=== PATIENT | male | born 1965 | race Caucasian/White ===

== ENCOUNTER 2017-01-11 07:53 | Day surgery (SDC) | payer BC ==
[~2017-01-11 07:53] MED LIST: RINGERS SOLUTION,LACTATED 1,000 ML IV PRN
--- OUTSIDE RECORDS SUMMARY | 2017-01-11 07:57 | XMS REPORT | Continuity of Care Document ---
:1965 Author Organization [facility] ([facility]) Address [address] [place] [address] Phone [phone] Care Team Providers Name Role Phone Kervin Dueñas Primary Care Provider [phone] Source Comments This disclosure is being made pursuant to the Care Everywhere program, applicable federal and state laws, and may not contain all informaitonavailable regarding this patient.[facility] ([facility]) Active Allergies and Adverse Reactions Allergen Noted Date Severity Reactions Comments Hydrocodone-Acetaminophen 12/13/2011 Hallucinations Pseudoephedrine OTHER made him irritable Current Medications Prescription Sig. Disp. Refills Start Date End Date Status aspirin 81 mg tablet Take 81 mg by Active mouth daily. naproxen 500 mg tablet Take 500 mg by Active mouth as needed. SERTraline 100 mg Take 50 mg by 08/01/2016 Active tablet mouth at bedtime. levothyroxine 50 mcg Take 50 mcg by 07/29/2016 Active tablet mouth daily. levothyroxine 200 mcg Take 200 mcg by 07/29/2016 Active tablet mouth every morning before breakfast. buPROPion (WELLBUTRIN Take 300 mg by 08/01/2016 Active XL) 300 mg extended mouth daily. release tablet 24 hour finasteride 5 mg Take 1 tablet (5 90 tablet 3 09/07/2016 Active tablet mg total) by mouth daily. tamsulosin 0.4 mg Take 2 capsules 180 capsule 3 09/07/2016 Active capsule (0.8 mg total) by mouth daily. metFORMIN 500 mg Take 500 mg by Active tablet mouth 2 times daily with meals. Active Problems Problem Noted Date Erectile dysfunction 12/19/2012 Renal mass, left 12/19/2012 BPH (benign prostatic hypertrophy) with urinary obstruction 12/19/2012 Other acute sinusitis 10/29/2007 Special screening for malignant neoplasm of prostate 06/28/2007 Screening for diabetes mellitus 06/28/2007 Unspecified hypothyroidism 06/28/2007 Other and unspecified hyperlipidemia 06/28/2007 Routine general medical examination at a health care facility 01/20/2006 Screening for obesity 12/23/2005 Most Recent Encounters Date Type Specialty Providers Description 12/26/2016 Office Visit Urology Samy Stoll MD Dx: Renal cancer, left (Primary Dx) 12/26/2016 Hospital Encounter Radiology Raza Figueroa MD Dx: Cancer of renal pelvis, left 12/26/2016 Hospital Encounter Radiology Alfredo Baum MD Dx: Pre- procedure lab exam (Primary Dx) 12/26/2016 Office Visit Pathology Samy Stoll MD Dx: Pre-procedure lab Lab Services, Irl exam 12/12/2016 Office Visit UrologSamy Hutchison MD Subj: Appointment Scheduled Immunizations Name Dates Previously Given Next Due Td, adsorbed adult PF 01/20/2006 Social History Tobacco Use Types Packs/Day Years Used Date Current Every Day Smoker Cigarettes 1 30 Smokeless Tobacco: Never Used Tobacco Cessation:Counseling Given: Yes Comments: Alcohol Use Drinks/Week oz/Week Comments Yes 0.0 social Last Filed Vital Signs Vital Sign Reading Time Taken Blood Pressure 125/78 12/26/2016 11:59 AM CDT Pulse 81 12/26/2016 11:59 AM CDT Temperature 36.6 C (97.9 F) 12/26/2016 11:59 AM CDT Respiratory Rate 20 01/11/2013 10:20 AM CDT Height 1.778 m (5' 10") 09/07/2016 9:54 AM STRIKER OFF Weight 149.1 kg (328 lb 11.3 oz) 09/07/2016 9:54 AM STRIKER OFF Body Mass Index 47.16 09/07/2016 9:54 AM STRIKER OFF Oxygen Saturation 98% 01/11/2013 10:20 AM CDT Plan of Care Date Type Specialty Providers Description 04/18/2017 Appointment Radiology Subj: Appointment Scheduled 04/18/2017 Appointment UrologSamy Hutchison MD Subj: Appointment Scheduled [address] [place] [address] [phone] (Fax) Health Maintenance Due Date Last Done Comments HCV Screening 1965 Hepatitis B Vaccine (1 of 3 - Primary 1965 Series) Tdap Vaccine 1975 MMR Vaccine 1982 Pneumococcal Vaccine (1 of 3 - PCV13) 1983 Lipid Disorder Screening 03/30/2014 03/30/2009, 04/28/2006, 12/23/2005 Colonoscopy 2014 Td Vaccine 01/21/2016 01/20/2006 Influenza Vaccine: Seasonal (Season 04/18/2017 Ended) Prostate Cancer Screening 12/26/2018 12/26/2016 Results from Last [address] ABDOMEN& PELVIS W CONTRAST (80838) (12/26/2016 11:18 AM) Impressions Impression: 1. Status post left nephrectomy, no local recurrence. 2. Borderline enlarged aortocaval lymph node, age indeterminate. Consider comparison to prior exams if available or follow-up to document stability. 3. Moderate hepatosplenomegaly. 4. 1.1 cm left adrenal myelolipoma. Narrative Procedure: CT ABDOMEN & PELVIS W CONTRAST (41047) Clinical Indication: History of renal cancer. S/p left nephrectomy Technique: CT exam of the abdomen and pelvis is performed following the uneventful administration of 120 cc Isovue-370 IV contrast. Comparison: None. Findings: Lower chest: The visualized lung bases are clear. Liver: Enlarged measuring 22.5 cm. No focal lesions. Bile ducts: Not dilated. Gallbladder: Normal. Pancreas: Normal Spleen: Enlarged measuring 16.9 cm. Adrenal glands: 1.1 cm fat-containing nodule in the left adrenal. Right adrenal normal. Kidneys: Probable small cyst in the inferior pole the right kidney. Status post left nephrectomy, unremarkable resection bed. Ureters: Not dilated Bladder: Unremarkable Aorta: Nonaneurysmal, calcified atherosclerotic disease Retroperitoneum: 0.9 cm aortocaval lymph node (image [id number]). Peritoneum: No ascites. Mesentery: No lymphadenopathy Stomach: Not distended. Small bowel: Not distended. Colon: Not distended. Appendix: Normal. Extraperitoneal pelvis: No lymphadenopathy. Prostate: Not enlarged. Abdominal wall: Normal Bones: No acute fracture or destructive bone lesion. Patchy lucency in the right iliac bone, likely benign. Procedure Note Russel, Incoming Imaging Results - MonDec 26, 2016 11:50 AM CDT Procedure: CT ABDOMEN & PELVIS W CONTRAST (17071) Clinical Indication: History of renal cancer. S/p left nephrectomy Technique: CT exam of the abdomen and pelvis is performed following the uneventful administration of 120 cc Isovue-370 IV contrast. Comparison: None. Findings: Lower chest: The visualized lung bases are clear. Liver: Enlarged measuring 22.5 cm. No focal lesions. Bile ducts: Not dilated. Gallbladder: Normal. Pancreas: Normal Spleen: Enlarged measuring 16.9 cm. Adrenal glands: 1.1 cm fat-containing nodule in the left adrenal. Right adrenal normal. Kidneys: Probable small cyst in the inferior pole the right kidney. Status post left nephrectomy, unremarkable resection bed. Ureters: Not dilated Bladder: Unremarkable Aorta: Nonaneurysmal, calcified atherosclerotic disease Retroperitoneum: 0.9 cm aortocaval lymph node (image [id number]). Peritoneum: No ascites. Mesentery: No lymphadenopathy Stomach: Not distended. Small bowel: Not distended. Colon: Not distended. Appendix: Normal. Extraperitoneal pelvis: No lymphadenopathy. Prostate: Not enlarged. Abdominal wall: Normal Bones: No acute fracture or destructive bone lesion. Patchy lucency in the right iliac bone, likely benign. IMPRESSION Impression: 1. Status post left nephrectomy, no local recurrence. 2. Borderline enlarged aortocaval lymph node, age indeterminate. Consider comparison to prior exams if available or follow-up to document stability. 3. Moderate hepatosplenomegaly. 4. 1.1 cm left adrenal myelolipoma. CHEST- PA& LATERAL (12/26/2016 9:58 AM) Impressions Impression: NORMAL EXAM Narrative Procedure: CHEST- PA & LATERAL Clinical Indication: History of renal cancer, evaluate for metastases Technique: PA and lateral chest radiograph Comparison: None Findings: The cardiomediastinal silhouette and pulmonary vasculature are normal. Scattered calcified granulomas in the right lung, otherwise lungs are clear bilaterally with no focal consolidation or mass. There are no pneumothoraces or effusions. The remainder of the study is unremarkable for the patient's age. Procedure Note Russel, Incoming Imaging Results - MonDec 26, 2016 11:09 AM CDT Procedure: CHEST- PA & LATERAL Clinical Indication: History of renal cancer, evaluate for metastases Technique: PA and lateral chest radiograph Comparison: None Findings: The cardiomediastinal silhouette and pulmonary vasculature are normal. Scattered calcified granulomas in the right lung, otherwise lungs are clear bilaterally with no focal consolidation or mass. There are no pneumothoraces or effusions. The remainder of the study is unremarkable for the patient's age. IMPRESSION Impression: NORMAL EXAM PROSTATE SPECIFIC ANTIGEN (PSA), TOTAL DIAGNOSTIC (12/26/2016 9:49 AM) Component Value Range PSA, Diagnostic 0.41Comment: 0.00-3.50 ng/mL Age specific normal values from the literature for PSA are provided as a guide only.No one decision level is appropriate when utilizing PSA in screening situation.Age, family history, previous values, and other factors should be used in decisions involving PSA values. Reference Ranges: 40-49 years:0.00-2.50 ng/mL 50-59 years:0.00-3.50 ng/mL 60-69 years:0.00-4.50 ng/mL 70-79 years:0.00-6.50 ng/mL Specimen Blood IRL RADIOLOGY CREATININE, POINT OF CARE (12/26/2016 9:49 AM) Component Value Range IRL Radiology Creatinine, Point of Care 0.9 0.6-1.2 mg/dL Calculated GFR 89 >60 mL/min/1.73 m2 Specimen Blood POST-VOID RESIDUAL (BVI), POINT OF CARE (12/26/2016) Component Value Range POST-VOID RESIDUAL 134 ml
[2017-01-11] MEDS ORDERED: RINGERS SOLUTION,LACTATED 1,000 ML IV ONE (08:48)
[2017-01-11] MEDS ORDERED: RINGERS SOLUTION,LACTATED 1,000 ML IV PRN (09:17)
[2017-01-11 10:02] VITALS: BP 106/65
--- NOTE | 2017-01-11 17:04 | OR ---
Operative Report - Dictated Report Narrative: OPERATIVE REPORT DATE OF OPERATION: 01/11/2017 PREOPERATIVE DIAGNOSIS: No prior dedicated colon studies POSTOPERATIVE DIAGNOSIS: Normal colonoscopy OPERATION: Colonoscopy SURGEON: Brandon Logan MD ANESTHESIA: MAC Marino Rosario CRNA INDICATIONS FOR PROCEDURE: The patient is a 51-year-old male referred by Dr. Dueñas. The patient has had no previous dedicated colon studies. There is no family history of colon cancer. The patient is currently asymptomatic FINDINGS: Normal colonoscopy to the cecum NARRATIVE OF PROCEDURE: The patient was identified in the holding area, and prior to the administration of anesthetic, a multidisciplinary timeout was observed. With the patient in the left lateral position and after the administration of intravenous sedation, the perineum was inspected. There was no evidence of pilonidal disease or skin breakdown. The external appearance of the anus was normal. Sphincter tone was good. The flexible fiberoptic colonoscope was inserted into the rectum which was insufflated with air. The rectal mucosa and submucosal vascular pattern appeared normal, the prep was seen to be complete. The scope was advanced through the sigmoid colon, up the descending colon, and around the splenic flexure where the triangular haustral architecture of the transverse colon was seen. The scope was advanced across the transverse colon, around the hepatic flexure to the cecum, where the confluence of tenia and the ileocecal valve were identified. The mucosa at this level appeared normal. The scope was then slowly withdrawn in a circular fashion so that all aspects of colonic mucosa were inspected. The colon was normal in course and caliber. The haustral architecture appeared well preserved throughout with no evidence of external compression. The mucosa and submucosal vascular pattern appeared normal, specifically there was no gross evidence to suggest colitis or inflammatory bowel disease and no AV malformations were seen. No alix diverticulosis was demonstrated. No polyps were encountered. The scope was gradually withdrawn to the level of the rectum. As much insufflated air as possible was removed. The scope was withdrawn from the patient and the procedure terminated. The patient tolerated the anesthetic and procedure well without complication and was transferred back to the ambulatory surgery area awake and in stable condition. The patient remained stable throughout a period of postoperative observation. He denied abdominal discomfort, was able to tolerate by mouth intake, and was up without assistance. I shared the operative findings with the patient and he was given copies of the photographs which appear in the medical record. He was discharged home with instructions not to engage in hazardous activity today, but may resume normal activity tomorrow, and advance diet as tolerated. He is to continue those medications as listed in the history and physical exam. RECOMMENDATION: Colon surveillance in 10 years depending upon findings and symptoms Reviewed and electronically signed
== END 2017-01-11 07:54 | disposition home or self-care (01) ==
LOC: AMB 07:53
PROVIDERS: ATTEND Surgery
PROC: 0DJD8ZZ Inspection of Lower Intestinal Tract, Via Natural or Artificial Opening Endoscopic (ICD-10-PCS; principal; 2017-01-11 08:40)
DX: Z12.11 Encounter for screening for malignant neoplasm of colon (principal); E11.9 Type 2 diabetes mellitus without complications; J44.9 Chronic obstructive pulmonary disease, unspecified; E78.5 Hyperlipidemia, unspecified; E03.9 Hypothyroidism, unspecified; F41.9 Anxiety disorder, unspecified; F32.9 Major depressive disorder, single episode, unspecified; F17.200 Nicotine dependence, unspecified, uncomplicated; Z68.41 Body mass index [BMI] 40.0-44.9, adult